=== PATIENT | female | born 1975 | race Two or more races ===

== ENCOUNTER 2019-03-02 06:53 | Day surgery (SDC) | payer OTHER ==
[2019-03-02] MEDS ORDERED: ULTRACET PO (11:40)
[2019-03-02] MEDS ORDERED: NEURONTIN300 MG PO (11:40)
[2019-03-02] MEDS ORDERED: POLY119PG PO (11:41)
== END 2019-03-02 13:20 | disposition home or self-care (01) ==
LOC: CIR.AMB 06:53
DX: K43.0 Incisional hernia with obstruction, without gangrene (principal)